=== PATIENT | female | born 1945 | race Caucasian/White ===

== ENCOUNTER → 2017-02-06 | Outpatient (CLI) | payer MEDICARE ==
--- NOTE | 2017-02-08 03:09 | Pulmonary Function Test ---
DATE OF STUDY: February 06, [address] Hearn Essentially normal study. No significant change since March 18, 2014. Forced vital capacity 2.85 L, 106% of predicted. Previously, 2.79 L. FEV1 is 2.32 L, 11% of predicted. Previously, 2.11 L. FEV1/FVC ratio 81%. FEF25/75 139%. Diffusion capacity is preserved at 16.94, 82% of predicted, and previously 16.7. Total lung capacity is preserved at 4.95, 106% of predicted, previously 4.98. Essentially normal study. No significant improvement since 2014. Job#: [id number] RI
== END ==
LOC: RESP 10:05
PROVIDERS: ATTEND Psychiatry & Neurology Neurology
DX: G70.00 Myasthenia gravis without (acute) exacerbation (principal)
CPT/HCPCS: 94010; 94727; 94729

== ENCOUNTER → 2017-03-09 | Outpatient (CLI) | payer MEDICARE ==
--- NOTE | 2017-03-09 18:37 | Diagnostic Imaging Report ---
PROCEDURE: CT CHEST WITHOUT CONTRAST CT scan of the chest WITHOUT intravenous contrast, using standard protocol. TECHNIQUE: The chest was scanned utilizing a multidetector helical scanner from the apex to the level of the adrenal glands. No IV contrast was administered per physician's request. Coronal and sagittal multiplanar reformations were obtained. COMPARISON: None. 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 Lungs and Airways: Linear subsegmental atelectasis/scarring in the anterior right lower lobe (series 3, image 61 and lateral left lower lobe (series 3, image 75), secondary to diaphragmatic eventration. No pulmonary nodules, masses, or consolidation. Airways are clear, without endobronchial lesions. Pleura: The pleural spaces are clear. Heart and mediastinum: Thyroid is unremarkable. The heart size is normal. No pericardial effusion. Aorta is non-aneurysmal. Main pulmonary artery is normal in caliber. Mild atherosclerotic calcification of the aortic valves, coronary arteries and thoracic aorta. Lymph nodes: No mediastinal, hilar, or axillary adenopathy. Abdomen: Limited views of the upper abdomen show no abnormality within the visualized liver, spleen, or pancreas. The adrenal glands are not imaged. Bones: No aggressive lytic lesions. Soft tissues are grossly unremarkable. IMPRESSION: 1. no pulmonary nodules, masses, or consolidation. No mediastinal masses. 2. Mild subsegmental atelectasis/scarring in bilateral lower lobes secondary to diaphragmatic eventration. Hitesh London M.D. Dictated by: Hitesh London M.D. on 03/09/2017 at 18:45 Electronically approved by: Hitesh London M.D. on 03/09/2017 at 18:45
== END ==
LOC: CT 11:18
PROVIDERS: ATTEND Internal Medicine
DX: G70.00 Myasthenia gravis without (acute) exacerbation (principal)
CPT/HCPCS: 71250